=== PATIENT | female | born 1955 | race Caucasian/White ===

== ENCOUNTER → 2016-10-24 | Outpatient (CLI) | payer BC ==
[~2016-10-24] MED LIST: CALC200S; HYG25 PO; MULTCHW4; REDCAP2 PO
--- NOTE | 2016-10-24 14:42 | MAMMOGRAPHY REPORT ---
UNILATERAL RIGHT DIGITAL DIAGNOSTIC MAMMOGRAM TOMOSYNTHESIS WITH CAD AND TARGETED RIGHT ULTRASOUND: 10/24/2016 CLINICAL HISTORY: 61-year-old woman presents for follow-up of a probably benign asymmetry in the sup erior middle one third of the right breast, best seen on the MLO view. The asymmetry partially effa radha with additional mammographic views, and no suspicious sonographic correlate was identified. TECHNIQUE: Right breast tomosynthesis in addition to standard 2D mammography was performed. Current study was also evaluated with a Computer Aided Detection (CAD) system. COMPARISON: Comparison is made to exams dated: 04/25/2016 ultrasound, 04/25/2016 mammogram, 04/23/2016 mammogram, 04/18/2015 mammogram, 04/15/2014 mammogram, and 10/22/2013 ultrasound - [facility]. BREAST COMPOSITION: The tissue of the right breast is heterogeneously dense, which may obscure smal l masses. FINDINGS: A linear scar marker overlies the medial periareolar right breast. An asymmetry in the nix perior right breast is less focal comparing to the 04/23/2016 screening mammogram. This area has th e appearance of normal fibroglandular tissue on the corresponding tomosynthesis images. Overall, no suspicious mass, architectural distortion or cluster of suspicious microcalcifications is seen in t he right breast. There is a benign rim calcification, a few benign-appearing punctate microcalcific ations and mild vascular calcification. Targeted ultrasound was performed in the superior right breast. Normal fibroglandular tissue is see n without a discrete solid or cystic mass. IMPRESSION: ACR BI-RADS CATEGORY 2: BENIGN, TARGETED ULTRASOUND ACR BI-RADS CATEGORY 2: BENIGN 1. An asymmetry in the superior right breast is less prominent compared to prior exams and has the appearance of normal fibroglandular tissue on the tomosynthesis images. There is no mammographic or targeted sonographic evidence of malignancy in the right breast. Recommend follow-up at time of ne xt annual screening mammogram. These results and recommendations were discussed with the patient at the time of the exam. Approximately 10% of breast cancers are not detected with mammography. A negative mammographic repor t should not delay biopsy if a clinically suggestive mass is present. Aida Zavala M.D. ay/:10/24/2016 08:41:08 Bending Press Operator: Ros MARTINEZ(R)(M), [facility] letter sent: Normal /2 BI-RADS Code: ACR BI-RADS Category 2: Benign Ultrasound BI-RADS: ACR BI-RADS Category 2: Benign
--- NOTE | 2016-10-25 10:48 | CODING QUERY NO DIAGNOSIS ---
TREATMENT RENDERED WITHOUT A DIAGNOSIS To promote full compliance with coding requirements relating to patient care, physician participation is requested in all cases of docketing specialist uncertainty. Please assist us with providing a diagnosis/symptom for the test(s) below: A diagnosis/symptom was not documented on your Order. A valid diagnosis/symptom is required to bill all insurances. Please remember that we are unable to code a diagnosis of rule out, probable, possible, questionable, or suspected. Tests that require a diagnosis: DOS: 10/24/16 * RIGHT DIAGNOSTIC MAMMOGRAM W/ ULTRASOUND DIAGNOSIS: Provider Signature: Date: Thank you Lucie Patton [employer] Once completed, please kindly fax back to [phone] For questions please call [phone]
== END | disposition home or self-care (01) ==
LOC: C.MAMM 07:43
PROVIDERS: ATTEND Family Medicine
DX: D48.61 Neoplasm of uncertain behavior of right breast (principal)

== ENCOUNTER → 2017-04-25 | Outpatient (CLI) | payer BC ==
--- NOTE | 2017-04-26 08:28 | MAMMOGRAPHY REPORT ---
BILATERAL DIGITAL SCREENING MAMMOGRAM TOMOSYNTHESIS WITH CAD: 04/25/2017 CLINICAL HISTORY: Routine screening. Patient has no complaints. TECHNIQUE: Breast tomosynthesis in addition to standard 2D mammography was performed. Current study was also evaluated with a Computer Aided Detection (CAD) system. COMPARISON: Comparison is made to exams dated: 10/24/2016 ultrasound, 10/24/2016 mammogram, 04/25/2016 ul trasound, 04/25/2016 mammogram, 04/23/2016 mammogram, and 04/18/2015 mammogram - [facility]. BREAST COMPOSITION: The tissue of both breasts is heterogeneously dense, which may obscure small mas ses. FINDINGS: No suspicious masses, calcifications, or areas of architectural distortion are noted in ei ther breast. There has been no significant interval change compared to prior exams. Scattered bilater al benign-appearing calcifications are not significantly changed. IMPRESSION: ACR BI-RADS CATEGORY 2: BENIGN There is no mammographic evidence of malignancy. A 1 year screening mammogram is recommended. The pa tient will receive written notification of the results. Approximately 10% of breast cancers are not detected with mammography. A negative mammographic report should not delay biopsy if a clinically suggestive mass is present. Nunu Kaufman M.D. ah/:04/25/2017 14:36:19 Shape Carver: Lillian MATUTE)(M), [facility] letter sent: Normal 1/2 BI-RADS Code: ACR BI-RADS Category 2: Benign
== END | disposition home or self-care (01) ==
LOC: C.MAMM 09:14
PROVIDERS: ATTEND Family Medicine
DX: Z12.31 Encounter for screening mammogram for malignant neoplasm of breast (principal); M85.88 Other specified disorders of bone density and structure, other site; M85.851 Other specified disorders of bone density and structure, right thigh; M85.852 Other specified disorders of bone density and structure, left thigh